=== PATIENT | female | born 1985 | race Caucasian/White ===

== ENCOUNTER 2021-01-08 15:58 | Emergency (ER) | payer OTHER ==
[~2021-01-08] VITALS: Ht 162.6 cm; Wt 68.2 kg
[2021-01-08 16:01] VITALS: BP 120/83
[2021-01-08] MEDS ORDERED: LIDOCAINE 1% 10 ML VIAL PERC ONE (16:45)
[2021-01-08] MEDS ORDERED: BACITRACIN 0.9 GM PACKET OINTMENT TP ONE (17:30)
== END 2021-01-08 17:42 | disposition home or self-care (01) ==
LOC: EMS 15:58
DX: S01.21XA Laceration without foreign body of nose, initial encounter (principal); F17.210 Nicotine dependence, cigarettes, uncomplicated; F12.90 Cannabis use, unspecified, uncomplicated; W01.0XXA Fall on same level from slipping, tripping and stumbling without subsequent striking against object, initial encounter; Y93.01 Activity, walking, marching and hiking; Y92.89 Other specified places as the place of occurrence of the external cause; Y99.8 Other external cause status
CPT/HCPCS: 12013; 99283; J3490

== ENCOUNTER 2021-01-18 15:26 | Emergency (ER) | payer OTHER ==
[~2021-01-18] VITALS: Ht 162.6 cm; Wt 68.2 kg
[2021-01-18 16:05] VITALS: BP 111/65
== END 2021-01-18 16:19 | disposition home or self-care (01) ==
LOC: EMS 15:28
DX: S01.21XD Laceration without foreign body of nose, subsequent encounter (principal); F17.210 Nicotine dependence, cigarettes, uncomplicated; F12.90 Cannabis use, unspecified, uncomplicated; X58.XXXD Exposure to other specified factors, subsequent encounter
CPT/HCPCS: 99281; Z7502

== ENCOUNTER 2023-11-18 16:36 | Emergency (ER) | payer OTHER ==
[~2023-11-18] VITALS: Ht 162.6 cm; Wt 72.7 kg
[2023-11-18 16:38] VITALS: BP 122/80; PULSE 70; RESP 16; TEMP 97.9
[2023-11-18] MEDS ORDERED: IBUPROFEN 600 MG TABLET PO ONE (17:45)
[2023-11-18] MEDS ORDERED: ACETAMINOPHEN 500 MG TABLET PO ONE (17:45)
[2023-11-18] MEDS ORDERED: ACET-66 PO (18:56)
[2023-11-18] MEDS ORDERED: IBUP-1554 PO (18:56)
== END 2023-11-18 19:07 | disposition home or self-care (01) ==
LOC: EMS 16:44
DX: S20.211A Contusion of right front wall of thorax, initial encounter (principal); F12.90 Cannabis use, unspecified, uncomplicated; Z98.890 Other specified postprocedural states; W31.89XA Contact with other specified machinery, initial encounter; Y93.89 Activity, other specified; Y92.89 Other specified places as the place of occurrence of the external cause; Y99.8 Other external cause status
CPT/HCPCS: 71101; 99283

== ENCOUNTER 2025-08-12 17:32 | Emergency (ER) | payer OTHER ==
[~2025-08-12] VITALS: Ht 162.6 cm; Wt 72.0 kg
[~2025-08-12 17:32] MED LIST: ACET-66 PO; IBUP-1554 PO
[2025-08-12 17:35] VITALS: BP 125/86; PULSE 108; RESP 18; TEMP 97.9; O2SAT 100
[2025-08-12] MEDS: PERTUSS(ACELL),DIPH,TET/PF 0.5 ML SYRINGE [ADULT] IM. ONE (19:45)
[2025-08-12] MEDS: LIDOCAINE 1% 10 ML VIAL SQ ONE (19:46)
[2025-08-12] MEDS ORDERED: CEPH-558 PO (20:05)
== END 2025-08-12 20:32 | disposition home or self-care (01) ==
LOC: EMS 17:32
DX: S71.111A Laceration without foreign body, right thigh, initial encounter (principal); F12.90 Cannabis use, unspecified, uncomplicated; W26.8XXA Contact with other sharp object(s), not elsewhere classified, initial encounter; Y93.89 Activity, other specified; Y92.89 Other specified places as the place of occurrence of the external cause; Y99.8 Other external cause status
CPT/HCPCS: 99283; 90715; 90471; 12004; J3490

== ENCOUNTER 2025-08-21 12:09 | Emergency (ER) | payer OTHER ==
[~2025-08-21] VITALS: Ht 162.6 cm; Wt 72.7 kg
[~2025-08-21 12:09] MED LIST changes: +CEPH-558 PO
[2025-08-21 12:23] VITALS: BP 125/96; PULSE 74; RESP 18; TEMP 98.1; O2SAT 97
== END 2025-08-21 14:23 | disposition home or self-care (01) ==
LOC: EMS 12:10
DX: S71.111D Laceration without foreign body, right thigh, subsequent encounter (principal); F12.90 Cannabis use, unspecified, uncomplicated; Z79.899 Other long term (current) drug therapy; Z98.890 Other specified postprocedural states; X58.XXXD Exposure to other specified factors, subsequent encounter
CPT/HCPCS: 99282; Z7502